=== PATIENT | female | born 1930 | race Caucasian/White ===

== ENCOUNTER 2017-03-25 08:53 | Day surgery (SDC) | payer BC ==
[2017-03-24 12:00] VITALS: BMI 26.2
[2017-03-25] MEDS ORDERED: Ketorolac Tromethamine 30 MG/ML VIAL ONE (09:51)
[2017-03-25] MEDS ORDERED: CEFAZOLIN/Water 2 GM/20 ML SYRINGE ONE (09:51)
--- NOTE | 2017-03-25 10:08 | RAD ---
CHEST TWO VIEWS: History: Pre op. FINDINGS: The cardiac silhouette and pulmonary vasculature are unremarkable. Lungs are slightly hyperinflated. Mediastinum is midline. There is no confluent airspace consolidation, pneumothorax or pleural fluid. Degenerative changes involve the thoracic spine on the lateral view. IMPRESSION: No active cardiopulmonary abnormalities are demonstrated. POS: [facility]
[2017-03-25 10:17] LABS: Hemoglobin 13.3 g/dL (12.0-16.0); Mean Corpuscular HGB CONC 34.2 g/dL (32.0-36.0); Mean Corpuscular Hemoglobin 34.4 pg (27.0-31.0); Mean Platelet Volume 7.3 fL (7.4-10.4); Platelet Count 161 thou/uL (130-400); Red Blood Cell (RBC) Count 3.86 mill/uL (4.20-5.40); White Blood Cell (WBC) Count 4.2 thou/uL (4.8-10.8)
[2017-03-25 10:26] LABS: Anion Gap 11 mmol/L (10-20); BUN (Urea Nitrogen) 15 mg/dL (9.8-20.1); Calc. Creatinine Clearance 48 mL/min (70-130); Calcium 9.2 mg/dL (7.8-10.44); Carbon Dioxide 28 mmol/L (23-31); Chloride 107 mmol/L (98-107); Estimated GFR-MDRD 69; Glucose 93 mg/dL (83-110); Potassium 4.2 mmol/L (3.5-5.1); Sodium 142 mmol/L (136-145)
[2017-03-25] MEDS ORDERED: Fentanyl 100 MCG/2 ML VIAL ONE (10:35)
[2017-03-25 10:38] LABS: Band 1 % (5-11); Eosinophils 4 % (0-10); Lymphocytes 17 % (21-51); MDiff Complete? YES; Monocytes 8 % (0-10); Neutrophil 58 % (42-75); RBC Morphology Normal; Reactive Lymphocytes 11 % (0-10)
[2017-03-25] MEDS ORDERED: Bupivacaine/Epinephrine 0.25% 30 ML VIAL ONE (10:40)
[2017-03-25] MEDS ORDERED: Bupivacaine 0.25% HCL 30 ML VIAL ONE (10:40)
[2017-03-25] MEDS ORDERED: PROPOFOL 200 MG/20 ML VIAL ONE (11:29)
[2017-03-25] MEDS ORDERED: ePHEDrine/0.9% NaCl/PF SYRINGE 50 mg/10 ml ONE (11:29)
[2017-03-25] MEDS ORDERED: Lidocaine 1% PF 5 ML VIAL ONE (11:29)
[2017-03-25] MEDS ORDERED: Ondansetron HCl/PF 4 MG/2 ML Vial ONE (11:29)
--- NOTE | 2017-03-26 13:53 | OP ---
DATE OF OPERATION: 03/25/2017 PREOPERATIVE DIAGNOSIS: Right inguinal hernia. POSTOPERATIVE DIAGNOSIS: Right inguinal hernia, indirect. OPERATION PERFORMED: Right inguinal hernia repair with extra large mesh patch and plug. SURGEON: Rodrick Harvey M.D. ANESTHESIA: General endotracheal. INDICATIONS: The patient is an 86-year-old white female. She presents with a large visible and palp able right inguinal hernia. She is taken to the operating room at this time for repair. DESCRIPTION OF OPERATION: Informed consent was obtained. The patient was taken to the operating shwetha m where general endotracheal anesthesia was obtained with the patient in the supine position. The ab domen was prepped with ChloraPrep and draped in sterile fashion. Local anesthetic was infiltrated us ing 0.25% Marcaine with epinephrine. An oblique right inguinal incision was created and dissection w as carried through the skin and subcutaneous tissue. The aponeurotic fibers were opened in a paralle l fashion so as to open the external ring. Dissection was carried out within the inguinal canal. Th e patient had a large bulging hernia that was immediately visible. The round ligament was identified , dissected, and divided. The hernia was dissected back to its origin. The epigastric vessels were clearly visualized and the hernia defect was lateral to these vessels. This was a broad based defect that was 3 to 4 cm in diameter. I dissected back to the level of the preperitoneal fat. The apex o f the hernia sac was then secured to the apex of an extra large mesh plug and the complex was inverte d in the preperitoneal space. The plug was secured to muscular and fascial tissue with several inter rupted sutures of 2-0 Vicryl. Due to the large size of the defect, I also imbricated the defect over the mesh using two interrupted sutures of 2-0 Vicryl. Although, there was no definite hernia medial ly, due to the laxity of the floor, I also placed two imbricating sutures to strengthen the direct sp nino as well. Mesh patch was obtained, trimmed to appropriate size, placed within the floor of the inguinal canal, and secured in place with several interrupted sutures of 2-0 Vicryl. Due to the diffuse laxity of th e inguinal floor, I ran a suture of 2-0 Vicryl along the shelving edge of the inguinal ligament. The fascia was closed with a running suture of 3-0 Vicryl. The remainder of the wound closed in laye rs with 3-0 and 4-0 Monocryl. Dermabond was placed externally. There were no complications. The pa tient tolerated the procedure well and was taken to recovery room in stable condition.
--- NOTE | 2017-03-27 00:48 | EKG ---
Test Reason : PREOP Blood Pressure : / mmHG Vent. Rate : 056 BPM Atrial Rate : 056 BPM P-R Int : 202 ms QRS Dur : 086 ms QT Int : 464 ms P-R-T Axes : 075 -17 005 degrees QTc Int : 447 ms Sinus bradycardia Nonspecific T wave abnormality Abnormal ECG When compared with ECG of 27-APR-2015 00:01, No significant change was found Confirmed by EDU GARCIA, . SLisa ([id number]) on 03/27/2017 12:48:04 AM Referred By: LENCHO Confirmed By:DR. Isaak SORENSEN MD
== END 2017-03-25 15:34 | disposition home or self-care (01) ==
LOC: SDC 08:53
PROVIDERS: ATTEND Specialist
PROC: 0YU50JZ Supplement Right Inguinal Region with Synthetic Substitute, Open Approach (ICD-10-PCS; principal; 2017-03-25)
DX: K40.90 Unilateral inguinal hernia, without obstruction or gangrene, not specified as recurrent (principal); I10 Essential (primary) hypertension; K21.9 Gastro-esophageal reflux disease without esophagitis; M19.90 Unspecified osteoarthritis, unspecified site; E78.5 Hyperlipidemia, unspecified; I20.9 Angina pectoris, unspecified; K59.00 Constipation, unspecified; H26.9 Unspecified cataract; Z79.01 Long term (current) use of anticoagulants; Z79.899 Other long term (current) drug therapy; Z88.0 Allergy status to penicillin; Z88.8 Allergy status to other drugs, medicaments and biological substances; Z88.4 Allergy status to anesthetic agent; Z91.040 Latex allergy status; Z98.890 Other specified postprocedural states
CPT/HCPCS: 36415; 71046; 80048; 85025; 93005; 93010; C1781; J0131; J1885; J2001; J2405; J2704; J3010; S0020

== ENCOUNTER 2018-01-23 09:23 | Outpatient (CLI) | payer BC ==
--- NOTE | 2018-01-23 11:32 | CT ---
NONCONTRAST HEAD CT: HISTORY: Left-sided headache x 2 months. COMPARISON: 05/07/2015. FINDINGS: No parenchymal hemorrhage or extraaxial hematoma. No midline shift. Basilar cisterns are patent. A ge-appropriate atrophy. Cortical grey-white matter differentiation is preserved. The ventricles and sulci are patent and symmetric. Hypodensities involving the deep grey matter structures are similar to the previous examination and l ikely due to chronic changes. Calvarium is intact. Adequate aeration of the sinuses and mastoid air cells. IMPRESSION: No acute intracranial process. POS: [facility]
== END 2018-01-23 09:24 | disposition home or self-care (01) ==
LOC: CT 09:23
PROVIDERS: ATTEND Internal Medicine Cardiovascular Disease
DX: R51 Headache (principal)
CPT/HCPCS: 70450

== ENCOUNTER 2018-01-29 12:24 | Emergency (ER) | payer BC ==
[2018-01-29 13:23] LABS: #Basophils 0.1 thou/uL (0.0-0.2); #Eosinphils 0.1 thou/uL (0.0-0.7); #Lymphocytes 0.9 thou/uL (1.20-3.40); #Monocytes 0.7 thou/uL (0.11-0.59); %Basophils 1.9 % (0.0-1.0); %Eosinophils 2.1 % (0.0-10.0); Hemoglobin 13.3 g/dL (12.0-16.0); Mean Corpuscular HGB CONC 34.5 g/dL (32.0-36.0); Mean Corpuscular Hemoglobin 31.8 pg (27.0-31.0); Mean Corpuscular Volume 92.2 fL (78.0-98.0); Mean Platelet Volume 8.6 fL (7.4-10.4); Platelet Count 163 thou/uL (130-400); RBC Distribution Width 12.5 % (11.5-14.5); Red Blood Cell (RBC) Count 4.19 mill/uL (4.20-5.40); White Blood Cell (WBC) Count 5.8 thou/uL (4.8-10.8)
[2018-01-29 13:40] LABS: CKMB 3.3 ng/mL (0-6.6); Troponin I Less than 0.010 ng/mL (< 0.028)
[2018-01-29 13:58] LABS: ALT (SGPT) 30 U/L (8-55); AST (SGOT) 30 U/L (5-34); Albumin 3.9 g/dL (3.4-4.8); Alkaline Phosphatase 66 U/L (40-150); Anion Gap 15 mmol/L (10-20); BUN (Urea Nitrogen) 15 mg/dL (9.8-20.1); Bilirubin, Total 1.8 mg/dL (0.2-1.2); CK (CPK) 170 U/L (29-168); Calc. Creatinine Clearance 0 mL/min (70-130); Carbon Dioxide 22 mmol/L (23-31); Chloride 105 mmol/L (98-107); Estimated GFR-MDRD 73; Globulin 2.3 g/dL (2.4-3.5); Glucose 121 mg/dL (83-110); Lipase 19 U/L (8-78); Protein, Total 6.2 g/dL (6.0-8.3); Sodium 138 mmol/L (136-145)
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
== END 2018-01-29 14:39 | disposition home or self-care (01) ==
LOC: SCSER 12:24
DX: S20.211A Contusion of right front wall of thorax, initial encounter (principal); I48.91 Unspecified atrial fibrillation; V49.9XXA Car occupant (driver) (passenger) injured in unspecified traffic accident, initial encounter
CPT/HCPCS: 70491; 71260; 72170; 74177; 80053; 82553; 83690; 84484; 85025; 93005

== ENCOUNTER 2018-03-09 09:30 | Emergency (ER) | payer BC, OTHER ==
[2018-03-09 10:28] LABS: #Eosinphils 0.2 thou/uL (0.0-0.7); #Lymphocytes 0.6 thou/uL (1.20-3.40); #Monocytes 0.8 thou/uL (0.11-0.59); #Neutrophils 8.4 thou/uL (1.40-6.50); %Basophils 0.3 % (0.0-1.0); %Eosinophils 1.7 % (0.0-10.0); %Lymphocytes 5.6 % (21.0-51.0); %Monocytes 7.9 % (0.0-10.0); %Neutrophils 84.6 % (42.0-75.0); Hemoglobin 13.9 g/dL (12.0-16.0); Mean Corpuscular HGB CONC 33.7 g/dL (32.0-36.0); Mean Corpuscular Hemoglobin 33.3 pg (27.0-31.0); Mean Corpuscular Volume 98.8 fL (78.0-98.0); Mean Platelet Volume 7.2 fL (7.4-10.4); Platelet Count 174 thou/uL (130-400); RBC Distribution Width 12.2 % (11.5-14.5); Red Blood Cell (RBC) Count 4.17 mill/uL (4.20-5.40); White Blood Cell (WBC) Count 9.9 thou/uL (4.8-10.8)
[2018-03-09 10:36] LABS: INR-International Normal Ratio 1.2; Prothrombin Time 15.1 SEC (12.0-14.7)
[2018-03-09 10:37] LABS: PTT 40.2 SEC (22.9-36.1)
[2018-03-09 10:40] LABS: D-Dimer Test Less than 0.27 *mcg/mL (0.27-0.43)
[2018-03-09] MEDS ORDERED: Ondansetron PF 4 MG/2 ML Vial ONE (10:43)
--- NOTE | 2018-03-09 10:43 | RAD ---
CHEST 1 VIEW: History Pain. Irregular heartbeat. Hypotension. COMPARISON: 03/25/2017. FINDINGS: Portable upright chest demonstrates a normal cardiac silhouette. The pulmonary vessels and hilum are normal. Costophrenic angles are clear. Hyperinflation, without consolidation or mass. No pneumoth orax or osseous abnormalities. IMPRESSION: No acute cardiopulmonary process. POS: [facility]
[2018-03-09 10:53] LABS: ALT (SGPT) 26 U/L (8-55); AST (SGOT) 26 U/L (5-34); Albumin 3.8 g/dL (3.4-4.8); Alkaline Phosphatase 87 U/L (40-150); Anion Gap 14 mmol/L (10-20); BUN (Urea Nitrogen) 13 mg/dL (9.8-20.1); Bilirubin, Total 1.7 mg/dL (0.2-1.2); CK (CPK) 99 U/L (29-168); Calc. Creatinine Clearance 0 mL/min (70-130); Calcium 9.2 mg/dL (7.8-10.44); Carbon Dioxide 23 mmol/L (23-31); Chloride 105 mmol/L (98-107); Estimated GFR-MDRD 71; Globulin 2.4 g/dL (2.4-3.5); Glucose 116 mg/dL (83-110); Lipase 12 U/L (8-78); Potassium 3.9 mmol/L (3.5-5.1); Protein, Total 6.2 g/dL (6.0-8.3); Sodium 138 mmol/L (136-145)
--- NOTE | 2018-03-09 11:40 | CT ---
CT ABDOMEN AND PELVIS WITH IV CONTRAST: HISTORY: Abdominal pain. Nausea. COMPARISON: 01/29/2018. FINDINGS: Mild scarring at the lung bases. The liver, spleen, kidneys, adrenal glands, and pancreas have a nor mal CT appearance. No enlarged lymph nodes or free fluid. Urinary bladder is unremarkable. Degener ative changes lumbar spine. IMPRESSION: Chronic-type findings are stable. No significant abnormalities are demonstrated. POS: [facility]
== END 2018-03-09 12:37 | disposition home or self-care (01) ==
LOC: ERS 09:30
DX: I48.91 Unspecified atrial fibrillation (principal); R11.2 Nausea with vomiting, unspecified; Z79.899 Other long term (current) drug therapy
CPT/HCPCS: 71045; 74177; 80053; 82550; 83690; 83880; 84484; 85025; 85379; 85610; 85730; 93005; 96361; 96374; J2405